=== PATIENT | female | born 1960 | race Caucasian/White ===

== ENCOUNTER 2018-08-18 13:11 | Outpatient (CLI) | payer BC ==
--- NOTE | 2018-09-13 08:47 | MMO ---
Bilateral MAMMO Bilat Screen [facility]. CLINICAL HISTORY: Patient is 57 years old and is seen for screening. The patient has the following family history of breast cancer: mother, at age 42. The patient has no personal history of cancer. VIEWS: The views performed were: bilateral craniocaudal with tomosynthesis and bilateral mediolateral oblique with tomosynthesis. MAMMOGRAM FINDINGS: The breasts are heterogeneously dense, which could obscure a lesion on mammography. There is an equal density, round mass measuring 12 millimeters with obscured margins seen in the upper-outer region of the right breast. In the left breast, there are no suspicious masses, calcifications or areas of architectural distortion. IMPRESSION: MASS IN THE RIGHT BREAST REQUIRES ADDITIONAL EVALUATION. AN ULTRASOUND EXAM IS RECOMMENDED. THE RESULTS OF THIS EXAM WERE SENT TO THE PATIENT. ACR BI-RADS Category 0 - Incomplete: Need additional imaging evaluation. [facility] will notify the patient of the need for additional imaging services. MAMMOGRAPHY NOTE: 1. A negative mammogram report should not delay a biopsy if a dominant of clinically suspicious mass is present. 2. Approximately 10% to 15% of breast cancers are not detected by mammography. 3. Adenosis and dense breasts may obscure an underlying neoplasm.
== END 2018-08-18 13:12 | disposition home or self-care (01) ==
LOC: BICMAMMO 13:11
PROVIDERS: ATTEND Family Medicine
DX: Z12.31 Encounter for screening mammogram for malignant neoplasm of breast (principal); N63.10 Unspecified lump in the right breast, unspecified quadrant; Z80.3 Family history of malignant neoplasm of breast
CPT/HCPCS: 77063; 77067

== ENCOUNTER 2018-11-04 13:27 | Outpatient (CLI) | payer BC ==
--- NOTE | 2018-11-04 15:02 | MMO ---
Right Breast MAMMO Unilat Diag [facility]. CLINICAL HISTORY: Patient is 57 years old and is seen for diagnostic exam. The patient has the following family history of breast cancer: mother, at age 42. The patient has no personal history of cancer. VIEWS: The views performed were: right craniocaudal and right mediolateral oblique. FILMS COMPARED: The present examination has been compared to prior imaging studies performed at [facility] on 08/18/2018 and 11/04/2018. MAMMOGRAM FINDINGS: Biopsy clip is adjacent to the lesion in the upper outer quadrant. IMPRESSION: FINDING IN THE RIGHT BREAST IS CONFIRMED UTILIZING POST PROCEDURE MAMMOGRAM. THE RESULTS OF THIS EXAM WERE SENT TO THE PATIENT. MAMMOGRAPHY NOTE: 1. A negative mammogram report should not delay a biopsy if a dominant of clinically suspicious mass is present. 2. Approximately 10% to 15% of breast cancers are not detected by mammography. 3. Adenosis and dense breasts may obscure an underlying neoplasm. Reported by: FRANCK AARON MD Electonically Signed: [id number]
--- NOTE | 2018-11-04 15:17 | ULT ---
RIGHT BREAST ULTRASOUND: Date: 11/04/18 HISTORY: Mass noted on screening mammography. COMPARISON: None. FINDINGS: Static and real-time images were performed. Targeted sonographic imaging of the right breast is perfo rmed and demonstrates a slightly lobulated solid echotexture mass measuring 0.9 x 0.9 x 1.3 cm. IMPRESSION: BI-RADS Category 4 - Suspicious finding. RECOMMENDATION: Ultrasound-guided biopsy of the right breast mass is recommended given that the breast has a slightly irregular margination on real-time imaging. POS: JOSE
--- NOTE | 2018-11-04 15:20 | ULT ---
RIGHT BREAST BIOPSY WITH ULTRASOUND GUIDANCE: Date: 11/04/18 HISTORY: Right breast mass noted on recent screening mammogram. Suspicious mass identified on diagnostic ultra sound performed today. FINDINGS: Successful right breast biopsy with ultrasound guidance. A total of four 14 gauge core biopsy samples were obtained. Samples were placed directly in Formalin. Post biopsy clip was placed. TECHNIQUE: Consent obtained to perform a right breast biopsy with ultrasound guidance. The breast was prepped an d draped in a sterile fashion. 1% lidocaine, buffered with sodium bicarbonate, was used for local ane sthesia. Under ultrasound guidance, a 14 gauge biopsy needle was advance such that the tip was adjace nt to the near margin of the lesion. A total of four samples were obtained and placed directly in For eleanor. The patient tolerated the procedure well. No immediate or postprocedure complication. IMPRESSION: Successful ultrasound-guided biopsy of right breast mass. Post biopsy clip was placed. Final patholog ic diagnosis pending. POS: CHENCHO
== END 2018-11-04 13:28 | disposition home or self-care (01) ==
LOC: BICULT 13:27
PROVIDERS: ATTEND Family Medicine
DX: N63.10 Unspecified lump in the right breast, unspecified quadrant (principal); Z80.3 Family history of malignant neoplasm of breast
CPT/HCPCS: 19083